=== PATIENT | female | born 1990 | race Caucasian/White ===

== ENCOUNTER 2019-01-31 02:02 | Emergency (ER) | payer BC, OTHER ==
[~2019-01-31] VITALS: Ht 170.2 cm; Wt 127.3 kg
[2019-01-31 02:05] VITALS: BP 141/110
[2019-01-31] MEDS ORDERED: famotidine 20mg tablet PO ONE (02:30)
[2019-01-31] MEDS ORDERED: LIDOcaine Viscous 15ml cup PO ONE (02:30)
[2019-01-31] MEDS ORDERED: mag hydrox/Alum hydrox/simeth 30ml oral suspension PO ONE (02:30)
[2019-01-31] MEDS ORDERED: PANT-47 PO (03:18)
== END 2019-01-31 03:26 | disposition home or self-care (01) ==
LOC: EEVIPCON 02:03 → ER 02:03
DX: R10.13 Epigastric pain (principal); R07.89 Other chest pain; Z87.891 Personal history of nicotine dependence; Z88.5 Allergy status to narcotic agent; Z79.899 Other long term (current) drug therapy
CPT/HCPCS: 93005; 99283